=== PATIENT | female | born 1955 | race Two or more races ===

== ENCOUNTER 2020-04-11 09:47 | Outpatient (CLI) | payer OTHER | END 2020-04-11 09:52 | disposition home or self-care (01) | LOC: SONOGRAMA 09:47 | DX: M75.32 Calcific tendinitis of left shoulder (principal) ==

== ENCOUNTER 2020-07-24 09:40 | Outpatient (CLI) | payer OTHER | END 2020-07-24 10:01 | disposition home or self-care (01) | LOC: MAMO-SONO 09:40 | DX: Z12.31 Encounter for screening mammogram for malignant neoplasm of breast (principal); N63.10 Unspecified lump in the right breast, unspecified quadrant; N63.20 Unspecified lump in the left breast, unspecified quadrant ==

== ENCOUNTER 2021-12-27 08:50 | Outpatient (CLI) | payer OTHER | END 2021-12-27 08:51 | disposition home or self-care (01) | LOC: MAMO-SONO 08:50 | DX: Z12.31 Encounter for screening mammogram for malignant neoplasm of breast (principal); N60.29 Fibroadenosis of unspecified breast ==